=== PATIENT | male | born 1960 | race Hispanic/Latino ===

== ENCOUNTER → 2017-11-30 | Day surgery (SDC) | payer BC ==
[2017-11-29 17:42] LABS: BASOPHILS % 0.5 % (0.0-1.0); EOSINOPHILS # (AUTO) 0.1 (0.0-0.4); HEMATOCRIT 39.5 % (38.2-49.6); LYMPHOCYTES % 33.6 % (18.0-39.1); MEAN CORPUSCULAR HGB CONC 35.4 g/dL (31-35); MEAN CORPUSCULAR VOLUME 87.4 fL (81-99); MONOCYTES # (AUTO) 0.6 (0.2-0.8); MONOCYTES % 9.6 % (4.4-11.3); NEUTROPHILS # (AUTO) 3.3 (2.1-6.9); NEUTROPHILS % 54.1 % (38.7-80.0); PLATELET COUNT 183 x10e3/uL (140-360); RED BLOOD COUNT 4.52 x10e6/uL (4.3-5.7); RED CELL DISTRIBUTION WIDTH 12.8 % (11.7-14.4)
[2017-11-29 18:16] LABS: ANION GAP 13.9 mmol/L (8-16); BLOOD UREA NITROGEN 20 mg/dL (7-26); BUN/CREATININE RATIO 21 (6-25); CALCIUM 9.1 mg/dL (8.4-10.2); CARBON DIOXIDE 21 mmol/L (22-29); CHLORIDE 107 mmol/L (98-107); CREATININE, SERUM 0.95 mg/dL (0.72-1.25); EST GLOMERULAR FILTRATION RATE > 60 ML/MIN (60-); GLUCOSE 92 mg/dL (74-118); POTASSIUM 3.9 mmol/L (3.5-5.1); SODIUM 138 mmol/L (136-145)
[~2017-11-30] MED LIST: AMLODIPINE BESYL5 MG PO; BUPIVACAINE 0.25%/EPI 30ML SDV INJ ONE; DEXAMETHASONE SOD PHOS INJ 4 MG/ML VIAL ONE; FENTANYL CITRATE/PF 100MCG/2 ML INJ ONE; KETOROLAC TROMETHAMINE 30 MG/ML VIAL ONE; LIDOCAINE HCL 2% LOCAL INJ 5 ML SDV VIAL INJ ONE; LISINOPRIL40 MG PO; MIDAZOLAM HCL 2 MG/2 ML VIAL ONE; ONDANSETRON HCL INJ 2 MG/ML VIAL ONE; PROPOFOL IV EMULSION 10 MG/ML 20 ML VIAL ONE; SEVOFLURANE INHAL SOLN 250 ML PEN BTL ONE; SIMVASTATIN20 MG PO
--- NOTE | 2017-11-30 13:16 | Operative Report ---
DATE OF PROCEDURE: November 30, 2017 PREOPERATIVE DIAGNOSIS: Epidermal inclusion cyst of the left shoulder. POSTOPERATIVE DIAGNOSIS: Epidermal inclusion cyst of the left shoulder. PROCEDURE PERFORMED: Excision of epidermal inclusion cyst of the left shoulder. ANESTHESIA: General. ESTIMATED BLOOD LOSS: Minimal. DRAINS: None. COMPLICATIONS: None. INDICATIONS AND FINDINGS: The patient is a pleasant 57-year-old male seen in my office with infected epidermal inclusion cyst of his left shoulder. Patient was treated with oral antibiotics which he still taking, and now that the infection has resolved he is admitted for excision. INTRAOPERATIVE FINDINGS: An approximately 2 cm epidermal inclusion cyst of the left shoulder. This was excised completely. DESCRIPTION OF PROCEDURE: With the patient lying in the operative table in the supine position after administration of general anesthesia, he was prepped and draped for excision of epidermal inclusion cyst of the left shoulder. An incision was made across the cyst over the left shoulder, and the dissection was carried down through the skin, subcutaneous tissue, until the cyst lining was identified. Then the cyst was sharply dissected in its entirety without a break of the lining or capsule and then excised sharply. Bleeding points were cauterized, if any. Then the wound was irrigated, closed in 2 layers using 2-0 Vicryl for the soft tissues. The skin was closed using 3-0 silk. Sterile dressing was applied. The patient tolerated the procedure well, was taken to the recovery room in stable condition. Job#: [id number]
[2017-11-30 13:20] VITALS: BP 135/81
== END | disposition home or self-care (01) ==
LOC: OR 08:53 → EDBD 10:30
PROVIDERS: ATTEND Surgery
DX: L72.11 Pilar cyst (principal); I10 Essential (primary) hypertension; I45.10 Unspecified right bundle-branch block; Z01.810 Encounter for preprocedural cardiovascular examination; Z01.812 Encounter for preprocedural laboratory examination; Z87.891 Personal history of nicotine dependence; Z85.46 Personal history of malignant neoplasm of prostate
CPT/HCPCS: 11402; 12031; 36415; 80048; 85025; 88304; 93005; J1100; J1885; J2001; J2250; J2405